=== PATIENT | female | born 1995 | race American Indian/Alaskan Native ===

== ENCOUNTER 2020-09-17 14:50 | Emergency (ER) | payer MEDICAID ==
--- NOTE | 2020-09-17 15:22 | Event Note ---
ED Screening Note ED Screening Note: Patient presents for generalized abdominal pain which has been intermittent for the last 3 weeks She is unsure of her last menstrual cycle She states there is a possibility of but she has not taken a test She states that she has intermittent nausea She denies any vomiting or diarrhea She thought she may have been constipated and took a laxative and was able to have a bowel movement but still was having intermittent pain She denies any urinary symptoms or abnormal vaginal discharge She states that she just had a child April 2020 No past medical history No allergies to medicines No past abdominal surgical history This initial assessment/diagnostic orders/clinical plan/treatment(s) is/are subject to change based on patients health status, clinical progression and re- assessment by fellow clinical providers in the ED. Further treatment and workup at subsequent clinical providers discretion. Patient/guardian urged not to elope from the ED as their condition may be serious if not clinically assessed and managed. Initial orders include: Labs, urine
[2020-09-17 15:49] LABS: Basophils % (Auto) 0.4 % (0.0-1.8); Eosinophils % (Auto) 0.2 % (0.0-4.3); Hematocrit 33.9 % (30.3-42.9); Hemoglobin 11.2 gm/dl (10.1-14.3); Lymphocytes # (Auto) 1.1 K/mm3 (1.2-5.4); Lymphocytes % (Auto) 10.2 % (13.4-35.0); Mean Corpuscular HGB Conc 33 % (30-34); Mean Corpuscular Volume 92 fl (79-97); Monocytes # (Auto) 0.5 K/mm3 (0.0-0.8); Platelet Count 459 K/mm3 (140-440); Red Blood Count 3.69 M/mm3 (3.65-5.03); Red Cell Distribution Width 13.1 % (13.2-15.2)
--- NOTE | 2020-09-17 15:57 | Emergency Department Report ---
<CHINO MEDEIROS - Last Filed: 09/17/20 19:00> ED General Adult HPI - General Chief complaint: Abdominal Pain Stated complaint: STOMACH PAIN Time Seen by Provider: 09/17/20 15:21 Source: patient Mode of arrival: Wheelchair Limitations: No Limitations - History of Present Illness Initial comments: 25-year-old female patient presents to the emergency department with complaints of diffuse episodic abdominal pain occurring twice over the last 3 weeks. Today, she experienced a particularly intense episode of abdominal pain today, prompting her to come to the emergency department. This episode was associated with nausea and vomiting. Patient states that she "just hasn't been feeling like herself lately." No history of prior abdominal surgeries. Patient delivered vaginally in April 2020 without complications. She has not seen a provider for her current symptoms. No history of similar episodes prior to 3 weeks ago. Patient took a laxative earlier this week with minimal transient relief of her symptoms. Last menstrual period was in July. Patient states that she is on oral contraceptive medication. Denies fever, chills, chest pain, shortness of breath, rectal bleeding, urinary symptoms, back pain, vaginal bleeding, vaginal discharge, hematemesis, anorexia. Denies all other complaints at this time. - Related Data Allergies Allergy/AdvReac Type Severity Reaction Status Date / Time No Known Allergies Allergy Unverified 09/17/20 15:12 ED Review of Systems Other: GENERAL: Negative for fever, chills, weight change, anorexia, fatigue. ENT: Negative for ear pain, difficulty hearing, sore throat, nasal congestion, epistaxis. CARDIOVASCULAR: Negative for chest pain, palpitations, lower extremity swelling. PULMONARY: Negative for cough, dyspnea, wheezing, orthopnea, cyanosis. GASTROINTESTINAL: Positive for abdominal pain, nausea, vomiting. MUSCULOSKELETAL: Negative for joint pain, joint swelling, myalgias, back pain, neck pain. NEUROLOGICAL: Negative for headache, seizure, syncope, paresthesias, weakness. INTEGUMENTARY: Negative for erythema, rash, diaphoresis, laceration, ecchymosis. HEMATOLOGICAL: Negative for hemoptysis, hematemesis, hematochezia, hematuria. PSYCHIATRIC: Negative for hallucinations, suicidal ideation, homicidal ideation, anxiety, depression. ED Past Medical Hx - Past Medical History Previous Medical History?: No - Surgical History Past Surgical History?: No - Social History Smoking Status: Never Smoker Substance Use Type: None ED Physical Exam - General Limitations: No Limitations - Other Other exam information: General: Awake and alert. No acute distress. Head: Atraumatic, normocephalic. Eyes: EOMI. Pupils are equal and round. Normal sclera and conjunctiva. ENT: Oral mucosa is moist. Normal pharyngeal exam. Neck: Supple. No lymphadenopathy. Pulmonary: No respiratory distress. Clear to auscultation bilaterally. Cardiac: Regular rate and rhythm. Pulses are palpable and equal bilaterally. No lower extremity cyanosis or edema. Skin: Warm and dry. No rashes. Abdomen: Soft, non-protuberant. Diffuse lower abdominal tenderness without guarding, rigidity, or rebound. Bowel sounds are normal. No organomegaly or masses noted. McBurney's point is nontender. Khoury sign is negative. Back: Normal alignment. No CVA tenderness. Extremities: Symmetrical. Full range of motion intact. Neurological: Alert and oriented, appropriately interactive, no focal deficits. Psych: Cooperative. Appropriate mood and affect. Speech is evenly metered. Thoughts are logically construed. ED Medical Decision Making - Lab Data Result diagrams: 09/17/20 15:26 09/17/20 15:26 - Medical Decision Making Differential diagnosis including but not limited to: appendicitis, cholecystitis, cholelithiasis, hepatobiliary obstruction, pancreatitis, peptic ulcer disease, bowel obstruction, bowel perforation, ovarian cyst/torsion, ectopic , intra-uterine , endometriosis Patient presents to emergency department with complaints of diffuse lower abdominal pain for 3 weeks. Vital signs are stable. Serum HCG ~11,000. Urinalysis positive for UTI. Labs otherwise unremarkable. RhoGam is not indicated. Care of patient transferred to Binu Hampton NP at shift change pending ultrasound results. ED Disposition Clinical Impression: Pelvic pain, Vaginal bleeding Disposition: [id number] LEFT AGAINST MED ADVICE Condition: Undetermined Instructions: Ectopic , Abdominal Pain (ED) Additional Instructions: Follow-up with a [facility] doctor as soon as possible or if symptoms worsen and continue return to emergency room as soon as possible. Your condition may be serious as instructed and educated today in the ER but you decided to leave AGAINST MEDICAL ADVICE. It is highly recommended to see a provider as soon as possible to rule out serious complications that was described to you during your ED stay. Referrals: [facility] [Primary Care Provider] - [facility] [Provider Group] - [facility] [Provider Group] - [facility] <BINU HAMPTON - Last Filed: 09/17/20 23:14> ED Review of Systems ROS: Stated complaint: STOMACH PAIN Other details as noted in HPI ED Course Vital Signs 09/17/20 09/17/20 09/17/20 15:12 20:33 20:37 Temperature 98 F 98.2 F Pulse Rate 84 89 Respiratory 20 16 18 Rate Blood Pressure 126/87 Blood Pressure 111/73 [Right] O2 Sat by Pulse 96 100 100 Oximetry 09/17/20 21:04 Temperature 98.4 F Pulse Rate Respiratory Rate Blood Pressure Blood Pressure [Right] O2 Sat by Pulse Oximetry - Reevaluation(s) Reevaluation #1: 09/17/20 22:27 Patient originally signed AMA in the return back to the ER. Ultrasound report has been reviewed with the patient. [facility] paged and pending for a consult back. Reevaluation #2: 09/17/20 22:48 Patient was educated on possible ectopic and stated she wants to sign AGAINST MEDICAL ADVICE due to baby at home with mother and her mother has to go to work in the morning. Patient was given strict educations of my concerns which can lead to further complications and/or but patient still refused and signed against medical advise. - Consultations Consultation #1: 09/17/20 22:45 Patient has been consulted with Dr. Collazo (OBGYN) about patient history, physical exam, and labs/US report and agrees for admission to the OR for possible ectopic . ED Medical Decision Making - Lab Data Result diagrams: 09/17/20 15:26 09/17/20 15:26 Lab Results 09/17/20 09/17/20 09/17/20 Range/Units 15:26 15:26 15:26 WBC 10.6 (4.5-11.0) K/mm3 RBC 3.69 (3.65-5.03) M/mm3 Hgb 11.2 (10.1-14.3) gm/dl Hct 33.9 (30.3-42.9) % MCV 92 (79-97) fl MCH 30 (28-32) pg MCHC 33 (30-34) % RDW 13.1 L (13.2-15.2) % Plt Count 459 H (140-440) K/mm3 Lymph % (Auto) 10.2 L (13.4-35.0) % [place] % (Auto) 5.0 (0.0-7.3) % Eos % (Auto) 0.2 (0.0-4.3) % Baso % (Auto) 0.4 (0.0-1.8) % Lymph # (Auto) 1.1 L (1.2-5.4) K/mm3 Atlantic # (Auto) 0.5 (0.0-0.8) K/mm3 Eos # (Auto) 0.0 (0.0-0.4) K/mm3 Baso # (Auto) 0.0 (0.0-0.1) K/mm3 Seg Neutrophils % 84.2 H (40.0-70.0) % Seg Neutrophils # 8.9 H (1.8-7.7) K/mm3 Sodium 140 (137-145) mmol/L Potassium 3.9 (3.6-5.0) mmol/L Chloride 106.4 (98-107) mmol/L Carbon Dioxide 22 (22-30) mmol/L Anion Gap 16 mmol/L BUN 12 (7-17) mg/dL Creatinine 0.7 (0.6-1.2) mg/dL Estimated GFR > 60 ml/min BUN/Creatinine Ratio 17 % Glucose 102 H (65-100) mg/dL Calcium 8.8 (8.4-10.2) mg/dL Magnesium (1.7-2.3) mg/dL Total Bilirubin 0.30 (0.1-1.2) mg/dL AST 12 (5-40) units/L ALT 8 (7-56) units/L Alkaline Phosphatase 62 (35-129) units/L Total Protein 7.0 (6.3-8.2) g/dL Albumin 3.8 L (3.9-5) g/dL Albumin/Globulin Ratio 1.2 % Lipase 12 L (13-60) units/L HCG, Quant 23056 H (0-4) mIU/mL Urine Color (Yellow) Urine Turbidity (Clear) Urine pH (5.0-7.0) Ur Specific [place] (1.003-1.030) Urine Protein (Negative) mg/dL Urine Glucose (UA) (Negative) mg/dL Urine Ketones (Negative) mg/dL Urine Blood (Negative) Urine Nitrite (Negative) Urine Bilirubin (Negative) Urine Urobilinogen (<2.0) mg/dL Ur Leukocyte Esterase (Negative) Urine WBC (Auto) (0.0-6.0) /HPF Urine RBC (Auto) (0.0-6.0) /HPF U Epithel Cells (Auto) (0-13.0) /HPF Urine Mucus /HPF Blood Type Antibody Screen 09/17/20 09/17/20 09/17/20 Range/Units 15:41 16:06 16:42 WBC (4.5-11.0) K/mm3 RBC (3.65-5.03) M/mm3 Hgb (10.1-14.3) gm/dl Hct (30.3-42.9) % MCV (79-97) fl MCH (28-32) pg MCHC (30-34) % RDW (13.2-15.2) % Plt Count (140-440) K/mm3 Lymph % (Auto) (13.4-35.0) % Atlantic % (Auto) (0.0-7.3) % Eos % (Auto) (0.0-4.3) % Baso % (Auto) (0.0-1.8) % Lymph # (Auto) (1.2-5.4) K/mm3 Atlantic # (Auto) (0.0-0.8) K/mm3 Eos # (Auto) (0.0-0.4) K/mm3 Baso # (Auto) (0.0-0.1) K/mm3 Seg Neutrophils % (40.0-70.0) % Seg Neutrophils # (1.8-7.7) K/mm3 Sodium (137-145) mmol/L Potassium (3.6-5.0) mmol/L Chloride (98-107) mmol/L Carbon Dioxide (22-30) mmol/L Anion Gap mmol/L BUN (7-17) mg/dL Creatinine (0.6-1.2) mg/dL Estimated GFR ml/min BUN/Creatinine Ratio % Glucose (65-100) mg/dL Calcium (8.4-10.2) mg/dL Magnesium 1.70 (1.7-2.3) mg/dL Total Bilirubin (0.1-1.2) mg/dL AST (5-40) units/L ALT (7-56) units/L Alkaline Phosphatase (35-129) units/L Total Protein (6.3-8.2) g/dL Albumin (3.9-5) g/dL Albumin/Globulin Ratio % Lipase (13-60) units/L HCG, Quant (0-4) mIU/mL Urine Color Yellow (Yellow) Urine Turbidity Slightly-cloudy (Clear) Urine pH 6.0 (5.0-7.0) Ur Specific [place] 1.020 (1.003-1.030) Urine Protein 100 mg/dl (Negative) mg/dL Urine Glucose (UA) Neg (Negative) mg/dL Urine Ketones Tr (Negative) mg/dL Urine Blood Sm (Negative) Urine Nitrite Pos (Negative) Urine Bilirubin Neg (Negative) Urine Urobilinogen < 2.0 (<2.0) mg/dL Ur Leukocyte Esterase Tr (Negative) Urine WBC (Auto) 5.0 (0.0-6.0) /HPF Urine RBC (Auto) 4.0 (0.0-6.0) /HPF U Epithel Cells (Auto) 5.0 (0-13.0) /HPF Urine Mucus 3+ /HPF Blood Type O POSITIVE Antibody Screen Negative - Radiology Data [facility] [address] [id number] Ultrasound Report Signed Patient: TERESITA GOMEZ MR#: [id number] : 1995 Acct:[id number] Age/Sex: 25 / F ADM Date: 09/17/20 Loc: ED Attending Dr: Ordering Physician: TRAVIS HORTON Date of Service: 09/17/20 Procedure(s): US OB <= 14 weeks fetus Accession Number(s): [id number] cc: TRAVIS HORTON ULTRASOUND OBSTETRIC INDICATION / CLINICAL INFORMATION: PAIN. TECHNIQUE: Transabdominal. Transvaginal COMPARISON: None available. FINDINGS: GESTATIONAL SAC: No evidence of a gestational sac. No evidence of pole or yolk sac. No evidence of heart motion ADNEXA: No significant abnormality. FREE FLUID: Large amounts of free fluid is present. ADDITIONAL FINDINGS: None. IMPRESSION: 1. Free fluid as noted without evidence of a definite intrauterine . Cannot totally exclude ectopic . Recommend clinical correlation Signer Name: Omar Ramirez MD Signed: 09/17/2020 10:00 PM Workstation Name: [id number] Transcribed By: GILBERT Dictated By: Omar Ramirez MD Electronically Authenticated By: Omar Ramirez MD Signed Date/Time: 09/17/202199 DD/ 57 TD/TT: - Medical Decision Making Patient was originally seen by Stuart Vazquez and signed out to me for pending ultrasound report. Ultrasound has been completed and reviewed with the patient. Patient consulted with surgeon for possible ectopic . Patient was educated of my concerns and patient stated she wants to leave and will come back in the morning. Patient was educated of my concerns with high suspicious of top which can lead to severe complications and or but patient refused and signed AGAINST MEDICAL ADVICE. Patient was instructed to follow-up with a OBGYN doctor as soon as possible or if symptoms worsen and continue return to emergency room as soon as possible. At time of signing AMA, the patient does not seem toxic or ill in appearance. No acute signs of distress noted. No further questions noted by the patient. Critical care attestation.: If time is entered above; I have spent that time in minutes in the direct care of this critically ill patient, excluding procedure time. ED Disposition Is pt being admited?: No Time of Disposition: 22:52
[2020-09-17 16:06] LABS: Alanine Aminotransferase 8 units/L (7-56); Albumin 3.8 g/dL (3.9-5); Blood Urea Nitrogen 12 mg/dL (7-17); Calcium 8.8 mg/dL (8.4-10.2); Hemolysis Index 0
[2020-09-17 16:13] LABS: BUN/Creatinine Ratio 17
[2020-09-17] MEDS ORDERED: ACETAMINOPHEN 500 MG TAB PO ONE (16:35)
[2020-09-17 16:39] LABS: Bilirubin,Urine NEG (Negative); Blood,Urine SM (Negative); Color,Urine Yellow (Yellow); Mucus,Urine 3+ /HPF; Urobilinogen,Urine < 2.0 mg/dL (<2.0)
[2020-09-17 20:34] VITALS: BP 111/73
--- NOTE | 2020-09-17 22:04 | Ultrasound Report ---
ULTRASOUND OBSTETRIC INDICATION / CLINICAL INFORMATION: PAIN. TECHNIQUE: Transabdominal. Transvaginal COMPARISON: None available. FINDINGS: GESTATIONAL SAC: No evidence of a gestational sac. No evidence of pole or yolk sac. No evidence of heart motion ADNEXA: No significant abnormality. FREE FLUID: Large amounts of free fluid is present. ADDITIONAL FINDINGS: None. IMPRESSION: 1. Free fluid as noted without evidence of a definite intrauterine . Cannot totally exclude ectopic . Recommend clinical correlation Signer Name: Omar Ramirez MD Signed: 09/17/2020 10:00 PM Workstation Name: [id number]
== END 2020-09-17 23:15 | disposition left against medical advice (07) ==
LOC: ED 14:50
DX: N93.9 Abnormal uterine and vaginal bleeding, unspecified (principal); R10.2 Pelvic and perineal pain
CPT/HCPCS: 36415; 76801; 76817; 80053; 81001; 83690; 83735; 84702; 85025; 86850; 86900; 86901